=== PATIENT | male | born 1980 | race Caucasian/White ===

== ENCOUNTER → 2019-06-24 13:45 | Outpatient (CLI) | payer OTHER, SELFPAY ==
--- NOTE | 2019-06-24 | DI.MRI.S_ITS ---
PROCEDURE: MR LUMBAR SPINE WO CON INDICATIONS: LOW BACK PAIN TECHNIQUE: Noncontrast sagittal T1 spin echo and T2 fast echo, sagittal STIR, axial T1 and T2 fast spin echo through the lumbar spine. In cases with scoliosis, additional coronal T2 fast spin echo may be performed. COMPARISON: [facility], , L-SPINE 2-3 VIEWS, 03/31/2014, 18:53. FINDINGS: Image quality: Excellent. Alignment and Curvature: There is normal bony alignment. Bone Marrow: Marrow is of normal overall signal. No acute vertebral body compression fractures. Spinal Cord: Conus medullaris terminates at the T12-L5 level. Visualized cord demonstrates normal signal and size. Paraspinous Soft Tissues: No paravertebral masses. L1-L2: Normal appearance. L2-L3: Normal appearance. L3-L4: Normal appearance. L4-L5: Preserved disc height. Moderate disc desiccation. There is diffuse posterior disc bulge and posterior central annular fissure. Mild bilateral facet arthropathy. The central canal is mildly narrowed. Mild to moderate bilateral foraminal stenosis. L5-S1: Preserved disc height. Moderate disc desiccation. There is diffuse posterior disc bulge and posterior central annular fissure. Mild bilateral facet arthropathy. The central canal is patent. No significant foraminal stenosis. IMPRESSION: 1. Multilevel degenerative disc disease and facet arthropathy as described. 2. Mild central canal stenosis at L4-L5. 3. Mild bilateral foraminal stenosis at L4-L5. 4. Posterior central annular fissures at L5-L5 and L5-S1. Dictated by: Rachel Starr M.D. on 06/24/2019 at 15:37 Approved by: Rachel Starr M.D. on 06/24/2019 at 15:44
== END ==
DX: M54.5 Low back pain (principal); M51.36 Other intervertebral disc degeneration, lumbar region; M51.37 Other intervertebral disc degeneration, lumbosacral region; M47.816 Spondylosis without myelopathy or radiculopathy, lumbar region; M47.817 Spondylosis without myelopathy or radiculopathy, lumbosacral region; M48.061 Spinal stenosis, lumbar region without neurogenic claudication
CPT/HCPCS: 72148